=== PATIENT | female | born 1955 | race Caucasian/White ===

== ENCOUNTER 2016-05-14 11:23 | Emergency (ER) | payer OTHER ==
[2016-05-14] MEDS ORDERED: ALBUTEROL SULFATE/IPRATROPIUM 3 ML NEBU IH ONE ×2 (11:48→11:51)
[2016-05-14 11:50] LABS: Hematocrit 42.5 % (37.0-47.0); Hemoglobin 14.4 gm/dL (12.5-16.0); Mean Cell Volume 88.5 fl (78-100); Mean Corpuscular Hgb Conc 33.9 g/dl (32-36); Mean Platelet Volume 9.8 fl (6.0-9.5); Neutrophil # 7.1 K/mm3 (1.3-6.0); Neutrophil % 72.1 % (42-75.0); Platelet Count 344 K/mm3 (150-450); White Blood Count 9.8 K/mm3 (4.0-10.5)
--- NOTE | 2016-05-14 11:57 | ERNOTE ---
Dyspnea - General Presenting Symptoms: shortness of breath Time Seen by Provider: 05/14/16 11:33 Source: patient Exam Limitations: no limitations - Immun/Allergies/Home Medications Immunizations: IMMUNIZATION HX Immunizations Up to Date Yes History of Influenza Vaccine Yes Hx Pneumococcal Vaccination Yes Allergies/Adverse Reactions: Allergies Ivklsve-Xmr-Xig Reductase Inhibitor Allergy (Verified 05/14/16 11:48) liquid codeine Allergy (Uncoded 05/14/16 11:48) Home Medications: HOME MEDICATIONS Albuterol Sulfate [Proair Hfa] 2 puff IH QID PRN 05/14/16 [Last Taken Unknown] Aspirin 81 mg PO DAILY 05/14/16 [Last Taken Unknown] Bisoprolol Fumarate [Zebeta] 5 mg PO DAILY 05/14/16 [Last Taken Unknown] Budesonide/Formoterol Fumarate [Symbicort 160-4.5 Mcg Inhaler] 2 puff IH BID [Last Taken Unknown] Cetirizine HCl [Zyrtec] 10 mg PO DAILY 05/14/16 [Last Taken Unknown] Cyclobenzaprine HCl [Flexeril] 10 mg PO TID PRN 05/14/16 [Last Taken Unknown] Furosemide [Lasix] 40 mg PO DAILY 05/14/16 [Last Taken Unknown] HYDROcodone/ACETAMINOPHEN [[place] 5-325] 1 tab PO Q4H PRN 05/14/16 [Last Taken Unknown] Ipratropium/Albuterol Sulfate [Combivent Respimat Inhal [place]] 1 puff IH QID [Last Taken Unknown] Levothyroxine Sodium [Levo-T] 150 mcg PO DAILY 05/14/16 [Last Taken Unknown] Lisinopril [Zestril] 40 mg PO DAILY 05/14/16 [Last Taken Unknown] Rivaroxaban [Xarelto] 15 mg PO DAILY 05/14/16 [Last Taken Unknown] Spironolactone [Aldactone] 25 mg PO DAILY 05/14/16 [Last Taken Unknown] guaiFENesin [Mucinex] 600 mg PO DAILY 05/14/16 [Last Taken Unknown] predniSONE [Prednisone] 3 tab PO DAILY #18 tab 05/14/16 [Last Taken Unknown] - History of Present Illness Narrative: Patient has had a cough and shortness of breath for about two weeks. She saw her PCP five days ago and was started on a Zpack, her sputum has turned from brown to green with that but she has gotten more short of breath over the lass few days. She usually smokes about a pack a day but has only smoked a few cigarettes the last few days, has slight chest tightness and chest pain with prolonged coughing. She has a history of COPD, uses inhaler without a spacer, has not used nebulizers in quite a while. She also has a history of atrial fibrillation and well as ablation, pacemaker placement and remote history of LA. She has not seen a president and cmo since moving here Initiating event: Reports: upper resp illness, exposure to smoke Frequency of episodes: Reports: occassional episodes Modifying Factors - (Improves): Reports: rest Modifying Factors (Worsens): Reports: activity Associated Symptoms-Dyspnea: Reports: chest pain/discomfort, cough. Denies: fever/chills, sweating, palpitations, dizziness, lightheadedness Prior Treatment: Reports: recently seen, treated by physician Review of Systems - Review of Systems Constitutional: Present: recent illness ENT: Present: nose congestion. Absent: ear pain, sore throat Respiratory: Present: See HPI, shortness of breath, cough Cardiology: Present: See HPI, chest pain Gastrointestinal/Abdominal: Absent: nausea, vomiting, diarrhea, abdominal pain Genitourinary: Present: no symptoms reported Skin: Absent: rash Neurological: Absent: headache - Patient's Past Medical History Patient History - Medical: Anxiety, Hypothyroidism Patient History - Cardiac/Respiratory: Atrial Fibrillation, Coronary Heart Disease, COPD, CVA/Stroke, Hypertension, Myocardial Infarction, TIA Patient History - Cancer: No Hx of Cancer Patient History - Surgical Procedures: Pacemaker - Social History Smoking Status: Current every day smoker Have you smoked in the past 12 months: Yes - Immunizations Immunizations Up to Date: Yes Hx Pneumococcal Vaccination: Yes History of Influenza Vaccine: Yes Physical Exam - Physical Exam General Appearance: Present: wd/wn, alert, no apparent distress, anxious Eye Exam: Normal inspection: bilateral, PERRL: bilateral Ears, Nose, Throat: Present: normal ENT inspection Respiratory: Present: no respiratory distress - 90% on RA, decreased breath sounds, expiration (prolonged), wheezing Cardiovascular/Chest: Present: regular rate, rhythm, no murmur Gastrointestinal/Abdominal: Present: nontender, nondistended, soft Extremity Exam: Present: no edema Neurological Exam: Present: alert, oriented, normal mood/affect Skin Exam: Present: normal color, warm/dry ED Progress - Results and Orders Patient's Lab Results:: I have reviewed the patient's lab results. - Vital Signs Patient's Vital Signs:: I have reviewed the patient's vital signs. Vital Signs: Vital Signs 05/14/16 11:39 Temperature 36.4 C Pulse Rate 80 Respiratory 29 H Rate Blood Pressure 159/92 O2 Sat by Pulse 92 Oximetry - EKG EKG: atrial flutter, other - ventricular pacing EKG read: Interp. by me - X-Ray X-Ray #1 X-Ray: chest - chronic changes, no acute Interpretation: Reviewed by me - Progress/Reassessment Chief Complaint: Dyspnea Progress Note-Subjective: 05/14/16 12:17 feeling better after duoneb, improved air movement, still wheezing 05/14/16 13:28 discussed results and plan, patient instructed to use nebulizer (has 3 boxes of medications) patient is thinking about quitting smoking, briefly discussed options, will follow up with her PCP Departure Clinical Impression: COPD exacerbation - Departure Disposition: Home self-care Condition: Good Instructions: Chronic Obstructive Pulmonary Disease Exacerbation, [id number] Additional Instructions: call Dr Leonardo for a follow up appointment use your nebulizer at home or use your inhalers with a spacer finish your antibiotic Referrals: Aimee Leonardo DO [Primary Care Provider] - Prescriptions: predniSONE [Prednisone] 3 tab PO DAILY #18 tab
[2016-05-14 12:10] LABS: ALT 15 U/L (19-67); AST 22 U/L (0-48); Albumin * 3.2 gm/dl (3.4-5.0); Alkaline Phosphatase * 117 U/L (50-170); Anion Gap 12.8 mmol/L (6.8-13.8); BNP * 1619 pg/mL (5-205); Bilirubin, Total 0.6 mg/dL (0.0-1.1); Blood Urea Nitrogen 9 mg/dL (3-23); Ca. Corrected For Albumin 9.8 mg/dL (8.4-10.2); Calcium * 9.5 mg/dL (7.9-10.9); Carbon Dioxide 32.6 mmol/L (24-32.6); Chloride 90 mmol/L (97-106); Glucose * 131 mg/dL (70-110); Potassium 3.4 mmol/L (3.4-4.6); Sodium 132 mmol/L (132-142); Troponin I Less than 0.017 ng/ml (0.00-0.10)
[2016-05-14] MEDS ORDERED: predniSONE 20 MG TABLET PO ONE (12:24)
[2016-05-14] MEDS ORDERED: predniSONE 20 MG TABLET ONE (12:25)
[2016-05-14 13:35] VITALS: BP 154/81
== END 2016-05-14 13:36 | disposition home or self-care (01) ==
LOC: ER 11:23
DX: J44.1 Chronic obstructive pulmonary disease with (acute) exacerbation (principal); F17.210 Nicotine dependence, cigarettes, uncomplicated; Z95.0 Presence of cardiac pacemaker; I10 Essential (primary) hypertension; I25.10 Atherosclerotic heart disease of native coronary artery without angina pectoris; E03.9 Hypothyroidism, unspecified; I25.2 Old myocardial infarction

== ENCOUNTER 2016-08-13 17:16 | Observation (INO) | payer OTHER ==
[2016-08-13] MEDS ORDERED: NORMAL SALINE 1,000 ML IV ONE (17:46)
[2016-08-13 17:59] LABS: Hematocrit 40.9 % (37.0-47.0); Hemoglobin 14.6 gm/dL (12.5-16.0); Mean Cell Volume 86.3 fl (78-100); Mean Corpuscular Hemoglobin 30.8 pg (27-31); Mean Corpuscular Hgb Conc 35.7 g/dl (32-36); Mean Platelet Volume 9.1 fl (6.0-9.5); Neutrophil # 4.9 K/mm3 (1.3-6.0); Neutrophil % 67.8 % (42-75.0); Platelet Count 325 K/mm3 (150-450); Red Blood Count 4.74 M/mm3 (4.2-5.4); Red Cell Distribution Width 12.8 % (11.5-14.0); White Blood Count 7.2 K/mm3 (4.0-10.5)
--- NOTE | 2016-08-13 17:59 | ERNOTE ---
Medical Problem HPI - Narrative Date of Service: 08/13/16 - General Chief Complaint: General Assessment Time Seen by Provider: 08/13/16 17:39 Source: patient Exam Limitations: no limitations - Immun/Allergies/Home Medications Immunizations: IMMUNIZATION HX Immunizations Up to Date Yes History of Influenza Vaccine Yes Hx Pneumococcal Vaccination Yes Allergies/Adverse Reactions: Allergies Kddveii-Izf-Rff Reductase Inhibitor Allergy (Verified 08/13/16 17:34) liquid codeine Allergy (Uncoded 08/13/16 17:34) Home Medications: HOME MEDICATIONS Albuterol Sulfate [Proair Hfa] 2 puff IH QID PRN 05/14/16 [Last Taken Unknown] Aspirin 81 mg PO DAILY 05/14/16 [Last Taken Unknown] Bisoprolol Fumarate [Zebeta] 5 mg PO DAILY 05/14/16 [Last Taken Unknown] Budesonide/Formoterol Fumarate [Symbicort 160-4.5 Mcg Inhaler] 2 puff IH BID [Last Taken Unknown] Cetirizine HCl [Zyrtec] 10 mg PO DAILY 05/14/16 [Last Taken Unknown] Cyclobenzaprine HCl [Flexeril] 10 mg PO TID PRN 05/14/16 [Last Taken Unknown] Furosemide [Lasix] 40 mg PO DAILY 05/14/16 [Last Taken Unknown] HYDROcodone/ACETAMINOPHEN [[place] 5-325] 1 tab PO Q4H PRN 05/14/16 [Last Taken Unknown] Ipratropium/Albuterol Sulfate [Combivent Respimat Inhal [place]] 1 puff IH QID [Last Taken Unknown] Levothyroxine Sodium [Levo-T] 150 mcg PO DAILY 05/14/16 [Last Taken Unknown] Lisinopril [Zestril] 40 mg PO DAILY 05/14/16 [Last Taken Unknown] Rivaroxaban [Xarelto] 15 mg PO DAILY 05/14/16 [Last Taken Unknown] Spironolactone [Aldactone] 25 mg PO DAILY 05/14/16 [Last Taken Unknown] guaiFENesin [Mucinex] 600 mg PO DAILY 05/14/16 [Last Taken Unknown] - History of Present History Narrative: Pt. comes in with c/o low sodium as her physician's office called her this afternoon after she had an appointment for routine labs this morning. Pt. states that she has COPD, a pace maker, chronic afib , CHF, and chronic renal disease. Pt. denies any prehospital treatment but had her thyroid treated with radioactive Iodine in the past and is on TSH for replacement. Review of Systems - Review of Systems Constitutional: Present: no symptoms reported. Absent: recent illness, fever, chills, weakness, fatigue, malaise EYE: Present: no symptoms reported ENT: Present: no symptoms reported Respiratory: Present: no symptoms reported, cough - chronic for pt.. Absent: shortness of breath, wheezing Cardiology: Present: no symptoms reported. Absent: chest pain, palpitations, edema Gastrointestinal/Abdominal: Present: no symptoms reported. Absent: nausea, vomiting, diarrhea Genitourinary: Present: no symptoms reported. Absent: frequency, pain, decreased urinary output Musculoskeletal: Present: no symptoms reported. Absent: back pain, joint pain Skin: Present: no symptoms reported Neurological: Present: no symptoms reported. Absent: headache, dizziness/light- headedness, numbness, tingling All Other Systems: All systems neg except as marked - Patient's Past Medical History Patient History - Medical: Anxiety, Hypothyroidism Patient History - Cardiac/Respiratory: Atrial Fibrillation, Coronary Heart Disease, COPD, CVA/Stroke, Hypertension, Myocardial Infarction, TIA Patient History - Cancer: No Hx of Cancer Patient History - Surgical Procedures: Pacemaker - Social History Living Situations: home - Immunizations Immunizations Up to Date: Yes Hx Pneumococcal Vaccination: Yes History of Influenza Vaccine: Yes Physical Exam - Physical Exam General Appearance: Present: wd/wn, alert, no apparent distress Eye Exam: Normal inspection: bilateral, PERRL: bilateral, EOMI: bilateral Ears, Nose, Throat: Present: normal ENT inspection, normal pharynx Neck: Present: normal inspection, nontender. Absent: lymphadenopathy (R), lymphadenopathy (L) Respiratory: Present: no respiratory distress, no accessory muscle use, chest nontender, wheezing - RML RUL exp. Absent: rhonchi Cardiovascular/Chest: Present: regular rate, rhythm, no murmur, normal peripheral pulses Gastrointestinal/Abdominal: Present: normal bowel sounds, nontender, nondistended, soft, no organomegaly Back Exam: Present: normal inspection, normal range of motion, no CVA tenderness , no vertebral tenderness Extremity Exam: Present: normal inspection, non-tender, normal range of motion, no edema Neurological Exam: Present: alert, oriented, normal mood/affect, no motor/ sensory deficits Skin Exam: Present: normal color, warm/dry. Absent: pallor, skin rash ED Progress - Date and Time Seen: Date and Time: 08/13/16 22:48 Discussed case with Martina and we will admit as pt. Sodiium is still less than 125 and pt. needs to be changes from K sparing diuretic to loop and fluid restriction and monitored for possible seizure activity and resp failure due to hyponatremia. - Results and Orders Patient's Lab Results:: I have reviewed the patient's lab results. - Vital Signs Patient's Vital Signs:: I have reviewed the patient's vital signs. Vital Signs: Vital Signs 08/13/16 17:21 Temperature 36.2 C L Pulse Rate 80 Respiratory 12 Rate Blood Pressure 136/90 O2 Sat by Pulse 97 Oximetry - Progress/Reassessment Chief Complaint: General Assessment Departure - Departure Clinical Impression: Hyponatremia Disposition: Home self-care Condition: Serious
[2016-08-13 18:26] LABS: Troponin I Less than 0.017 ng/ml (0.00-0.10)
[2016-08-13 18:29] LABS: ALT 15 U/L (19-67); AST 18 U/L (0-48); Alkaline Phosphatase * 127 U/L (50-170); Anion Gap 14.3 mmol/L (6.8-13.8); BNP * 650 pg/mL (5-205); BUN/Creatinine Ratio 6.4 (9.0-21.6); Bilirubin, Total 0.6 mg/dL (0.0-1.1); Blood Urea Nitrogen 9 mg/dL (3-23); Ca. Corrected For Albumin 8.9 mg/dL (8.4-10.2); Calcium * 9.2 mg/dL (7.9-10.9); Carbon Dioxide 27.5 mmol/L (24-32.6); Chloride 85 mmol/L (97-106); Glucose * 109 mg/dL (70-110); Magnesium 1.6 mg/dL (1.2-2.8); Phosphorus 3.8 mg/dL (2.2-4.2); Potassium 4.8 mmol/L (3.4-4.6); Sodium 122 mmol/L (132-142); TSH * 1.945 uIU/mL (0.358-3.74); Total Protein 7.3 gm/dL (6.2-8.2)
[2016-08-13 19:58] LABS: Urine Bilirubin Negative (NEGATIVE); Urine Blood Negative /ul (NEGATIVE); Urine Ketone Negative (NEGATIVE); Urine Nitrite Negative (NEGATIVE); Urine Protein Negative (NEGATIVE); Urine Specific Gravity <=1.005 SP.GR. (1.005-1.010); Urine Urobilinogen Normal (NORMAL)
[2016-08-13 20:16] LABS: Urine Appearance Clear; Urine Bacteria None Seen; Urine Color Yellow; Urine RBC None Seen /hpf (0-5); Urine WBC TRACE /hpf (0-5)
[2016-08-13 21:49] LABS: Albumin * 3.8 gm/dl (3.4-5.0); Anion Gap 13.4 mmol/L (6.8-13.8); BUN/Creatinine Ratio 7.1 (9.0-21.6); Bilirubin, Total 0.6 mg/dL (0.0-1.1); Ca. Corrected For Albumin 8.6 mg/dL (8.4-10.2); Calcium * 8.8 mg/dL (7.9-10.9); Carbon Dioxide 24.7 mmol/L (24-32.6); Potassium 4.1 mmol/L (3.4-4.6); Total Protein 6.9 gm/dL (6.2-8.2)
[2016-08-13] MEDS ORDERED: NICOTINE 21 MG PATC TD SCH (23:00)
[2016-08-13] MEDS ORDERED: NORMAL SALINE 1,000 ML IV PRN (23:29)
[2016-08-13] MEDS ORDERED: HYDROcodone/ACETAMINOPHEN 1 EACH TABLET PO PRN (23:55)
[2016-08-13] MEDS ORDERED: CYCLOBENZAPRINE HCL 10 MG TABLET PO PRN (23:55)
[2016-08-13] MEDS ORDERED: ALBUTEROL SULFATE 200 PUFF INHALER IH PRN (23:55)
--- NOTE | 2016-08-13 23:55 | HP ---
Chief Complaint - Chief Complaint Date of Service: 08/13/16 Time of Service: 23:43 Chief Complaint: hyponatremia History of Present Illness: Pt is a 60 year old female pt of Dr. Fontana who was seen today for routine check up who was later called to come into the ER for a laboratory findings of Na+ 120. PMH is significant for: [place], anxiety, hypothyroidism, afib, CAD, CVA, HTN, TIA, and CHF. Upon presentation to ER Na+ level was 121, she received a total of 1L NS in ER, 4 hour NA+ level post was 123. All other laboratory findings were without abnormality, she is not symptomatic. Pt is currently on Aldactone and Lasix daily at home. She will be admitted to observation overnight with a minimum one midnight stay for IVF overnight to correct her hyponatremia. - Patient's Past Medical History Patient History - Medical: Anxiety, Hypothyroidism Patient History - Cardiac/Respiratory: Atrial Fibrillation, Coronary Heart Disease, CHF, COPD, CVA/Stroke, Hypertension, Myocardial Infarction, TIA Patient History - Cancer: Cervical Patient History - Surgical Procedures: Cholecystectomy, D & C, Pacemaker, Other - cervical peel, Hernia Repair Patient History - Other: None - Family History Mother Family History - Medical: Family History - Cardiac/Respiratory: Hypertension Family History - Cancer: Lung Father Family History - Cancer: Melanoma Grandmother-Paternal Family History - Medical: Family History - Cardiac/Respiratory: Myocardial Infarction Grandmother-Maternal Family History - Medical: Family History - Cardiac/Respiratory: CVA/Stroke, Hypertension Grandfather-Paternal Family History - Medical: Family History - Cancer: Colon Grandfather-Maternal Family History - Medical: Family History - Cardiac/Respiratory: No pertinent hx Family History - Cancer: Lung - Social History Living Situations: home Psych History: Hx of Anxiety Does anyone smoke in the home?: No Smoking Status: Current every day smoker Cigarettes Packs Per Day: 1.5 - PPD Have you smoked in the past 12 months: Yes Patient requests Smoking Cessation Consult: No Initiate information on Smoking Cessation: No Alcohol Use: none Drug Use: marijuana - Immunizations Immunizations Up to Date: Yes Hx Pneumococcal Vaccination: Yes History of Influenza Vaccine: Yes Review Of Systems (GEN) - Review of Systems Generalized/Overall Review: Present: No Symptoms Reported EENTM: Present: Nose Congestion Respiratory: Present: Cough - post nasal drip Cardiac: Present: No Symptoms Reported Abdominal: Present: No Symptoms Reported Genitourinary: Present: No Symptoms Reported Musculoskeletal: Present: No Symptoms Reported Neurological: Present: No Symptoms Reported Skin: Present: No Symptoms Reported Endocrine: Present: No Symptoms Reported Immunizations: IMMUNIZATION HX Immunizations Up to Date Yes History of Influenza Vaccine Yes Hx Pneumococcal Vaccination Yes Allergies/Adverse Reactions: Allergies Allergy/AdvReac Type Severity Reaction Status Date / Time Jfvhdpz-Iyv-Hsr Reductase Allergy Verified 08/13/16 17:34 Inhibitor liquid codeine Allergy Uncoded 08/13/16 17:34 Home Medications: HOME MEDICATIONS Albuterol Sulfate [Proair Hfa] 2 puff IH QID PRN 05/14/16 [Last Taken Unknown] Aspirin 81 mg PO DAILY 05/14/16 [Last Taken Unknown] Bisoprolol Fumarate [Zebeta] 5 mg PO DAILY 05/14/16 [Last Taken Unknown] Budesonide/Formoterol Fumarate [Symbicort 160-4.5 Mcg Inhaler] 2 puff IH BID [Last Taken Unknown] Cetirizine HCl [Zyrtec] 10 mg PO DAILY 05/14/16 [Last Taken Unknown] Cyclobenzaprine HCl [Flexeril] 10 mg PO TID PRN 05/14/16 [Last Taken Unknown] Furosemide [Lasix] 40 mg PO DAILY 05/14/16 [Last Taken Unknown] HYDROcodone/ACETAMINOPHEN [[place] 5-325] 1 tab PO Q4H PRN 05/14/16 [Last Taken Unknown] Ipratropium/Albuterol Sulfate [Combivent Respimat Inhal [place]] 1 puff IH QID [Last Taken Unknown] Levothyroxine Sodium [Levo-T] 175 mcg PO DAILY 05/14/16 [Last Taken Unknown] Lisinopril [Zestril] 40 mg PO DAILY 05/14/16 [Last Taken Unknown] Rivaroxaban [Xarelto] 15 mg PO DAILY 05/14/16 [Last Taken Unknown] Spironolactone [Aldactone] 25 mg PO DAILY 05/14/16 [Last Taken Unknown] guaiFENesin [Mucinex] 600 mg PO DAILY 05/14/16 [Last Taken Unknown] Exam - Exam Vital Signs: Vital Signs - Last Taken Temp 35.9 C L 08/13/16 23:04 Pulse 80 08/13/16 23:04 Resp 18 08/13/16 23:04 BP 147/90 08/13/16 23:04 Pulse Ox 100 RA 08/13/16 23:04 Constitutional: Present: Alert, Oriented x3, Cooperative, No distress ENT Exam: Present: normal ENT inspection, nasal congestion, nasal drainage Eye Exam: bilateral eye: normal inspection, PERRL Back Exam: Present: normal inspection Respiratory: Present: chest non-tender, no respiratory distress, no accessory muscle use, decreased breath sounds, wheezing Cardiovascular/Chest: Present: normal peripheral pulses, regular rate, rhythm, no chest tenderness, no edema, no gallop, no JVD, no murmur Peripheral Pulses: dorsalis-pedis (R): 2+, dorsalis-pedis (L): 2+, radial (R): 2 +, radial (L): 2+ Abdomen: Present: Normal bowel sounds, soft, nontender, nondistended Extremity: Present: normal range of motion, non-tender, normal inspection, no pedal edema, no calf tenderness, normal capillary refill Skin Exam: Present: normal color, warm/dry, no cyanosis Neurologic: Present: no motor/sensory deficits, alert, normal mood/affect, oriented x 3 Appearance: Present: appropriate appearance, appropriate insight, neat, no memory impairment Eye contact: Present: cooperative, good eye contact, normal speech Thoughts: Present: normal thought pattern, no apparent hallucination Diagnostic Studies: Laboratory Results Laboratory Tests 08/13/16 08/13/16 08/13/16 17:50 17:50 19:45 WBC 7.2 Hgb 14.6 Hct 40.9 Plt Count 325 Sodium 122 L Potassium 4.8 H Chloride 85 L Carbon Dioxide 27.5 Anion Gap 14.3 H BUN 9 Creatinine 1.41 H Phosphorus 3.8 Magnesium 1.6 AST 18 ALT 15 L Alkaline Phosphatase 127 Troponin I Less than 0.017 B-Natriuretic Peptide 650 H TSH 1.945 Ur Leukocyte Esterase 75 H Urine WBC Trace H Assessment/Plan - Assessment/Plan (1) Hyponatremia Assessment: Outpt laboratory level of 120, upon admission Na+ 123. Will admit and hydrate with NS overnight, pt remains asymptomatic, usually runs in low 130's. Repeat labs in am. -CMP in am -Hold aldactone and lasix -Sz precautions -Telemetry Problem: Acute (2) A-fib Assessment: Stable, continue xarelto as prescribed at home. Plan: -Xarelto 15mg daily Problem: Chronic (3) Hypothyroidism Assessment: Stable, TSH 1.9 on admission. Continue home medications. Plan: -Synthroid 175mcg PO daily Problem: Chronic (4) HTN (hypertension) Assessment: Stable, chronic condition. Continue home medications as prescribed. Plan: -Lisinopril 40mg PO daily -Zebeta 5mg PO daily Problem: Chronic (5) COPD (chronic obstructive pulmonary disease) Assessment: Stable, continue home medications are prescribed. Plan: -Symbicort -Proair -Combivent Problem: Acute
[2016-08-14] MEDS: FLUTICASONE/SALMETEROL 14 PUFF DISK.W.DEV IH SCH ×2 (00:33→07:32)
[2016-08-14] MEDS: ALBUTEROL SULFATE/IPRATROPIUM 3 ML NEBU IH SCH ×3 (00:52→10:19)
[2016-08-14 06:16] LABS: Albumin * 3.3 gm/dl (3.4-5.0); Anion Gap 12.8 mmol/L (6.8-13.8); BUN/Creatinine Ratio 8.1 (9.0-21.6); Bilirubin, Total 0.5 mg/dL (0.0-1.1); Ca. Corrected For Albumin 8.8 mg/dL (8.4-10.2); Calcium * 8.6 mg/dL (7.9-10.9); Carbon Dioxide 25.9 mmol/L (24-32.6); Potassium 3.7 mmol/L (3.4-4.6); Total Protein 6.1 gm/dL (6.2-8.2)
[2016-08-14] MEDS ORDERED: ALBUTEROL SULFATE 2.5 MG/3 ML VIAL.NEB IH PRN (06:45)
[2016-08-14 06:55] VITALS: BP 128/90
[2016-08-14] MEDS ORDERED: LEVOTHYROXINE SODIUM 175 MCG TABLET PO SCH (07:00)
[2016-08-14] MEDS ORDERED: RIVAROXABAN 15 MG TABLET PO SCH (09:00)
[2016-08-14] MEDS ORDERED: ASPIRIN 81 MG TAB.CHEW PO SCH (09:00)
[2016-08-14] MEDS ORDERED: LORATADINE 10 MG TABLET PO SCH (09:00)
[2016-08-14] MEDS ORDERED: BISOPROLOL FUMARATE 5 MG TABLET PO SCH ×2 (09:00)
[2016-08-14] MEDS ORDERED: LISINOPRIL 40 MG TABLET PO SCH (09:00)
--- NOTE | 2016-08-14 09:38 | DS ---
(1) Hyponatremia Diagnosis(s): Acute on ChronicO Problem: Acute Description of Stay: ADMISSION DATE: 08.13.2016 DISCHARGE DATE: 08.14.2016 ADMISSION HPI BY BENNIE COBURN NP: Pt is a 60 year old female pt of Dr. Fontana who was seen today for routine check up who was later called to come into the ER for a laboratory findings of Na+ 120. PMH is significant for: [place], anxiety, hypothyroidism, afib, CAD, CVA, HTN, TIA, and CHF. Upon presentation to ER Na+ level was 121, she received a total of 1L NS in ER, 4 hour NA+ level post was 123. All other laboratory findings were without abnormality, she is not symptomatic. Pt is currently on Aldactone and Lasix daily at home. She will be admitted to observation overnight with a minimum one midnight stay for IVF overnight to correct her hyponatremia. HOSPITAL COURSE: The patient presented to clinic for routine follow-up visit on 08/13/2016. She had routine blood work that was drawn at that visit and a short time after her appointment, her blood work results revealed a sodium level of 120. The patient does have chronic hyponatremia with a baseline sodium level around 130. The patient admits to having a poor appetite and nausea which has been present for quite some time now so it is most likely that the acute worsening in her sodium level was secondary to poor PO intake. Patient was given IV fluid hydration during her overnight observation admission and on recheck, her sodium level was improved and close to baseline. The patient was discharged home in stable condition and instructed to follow-up with Dr. Leonardo within 1-2 weeks. She was also instructed to have blood work completed on Saturday, 2016. The patient had a UA completed in the emergency department prior to admission. However, there were no urine studies ordered for further evaluation of the hyponatremia. The patient did NOT have any urinary symptoms so a urine culture should have never been completed but it was in the preliminary results are growing gram-negative bacilli. Given the patients lack of urinary symptoms, this would be considered asymptomatic bacteriuria and there is NO antibiotic treatment necessary/indicated. FOLLOW-UP APPOINTMENTS: Check BMP on 08.20.2016 and have results sent to Dr. Fontana office for review PCP, Dr. Leonardo, within 1-2 weeks NEW OR CHANGED MEDICATIONS: None DISCONTINUED MEDICATIONS: None Procedures Performed: none Results and Findings: Laboratory Tests 08/13/16 08/13/16 08/14/16 17:50 21:30 05:20 Sodium 122 L 123 L 128 L TSH 1.945 Discharge Disposition: Home self care Disposition: Home self-care Condition: Stable Discharge Activity: Activity as tolerated Discharge Diet: Resume usual diet Referrals: Aimee Leonardo DO [Primary Care Provider] - Problem Oriented Discharge Instructions to Patient/Family: Hyponatremia, Easy- to-Read Additional Patient Instructions (free text): Check BMP on 08/20/2016. Follow-up with PCP, Dr. Leonardo, next week on 08-21-16 @ 4:00pm. Complete Home Medications List: Complete Home Medication List: Albuterol Sulfate [Proair Hfa] 2 puff IH QID PRN 05/14/16 Aspirin 81 mg PO DAILY 05/14/16 Bisoprolol Fumarate [Zebeta] 5 mg PO DAILY 05/14/16 Budesonide/Formoterol Fumarate [Symbicort 160-4.5 Mcg Inhaler] 2 puff IH BID Cetirizine HCl [Zyrtec] 10 mg PO DAILY 05/14/16 Cyclobenzaprine HCl [Flexeril] 10 mg PO TID PRN 05/14/16 Furosemide [Lasix] 40 mg PO DAILY 05/14/16 HYDROcodone/ACETAMINOPHEN [[place] 5-325] 1 tab PO Q4H PRN 05/14/16 Ipratropium/Albuterol Sulfate [Combivent Respimat Inhal [place]] 1 puff IH QID Levothyroxine Sodium [Levo-T] 175 mcg PO DAILY 05/14/16 Lisinopril [Zestril] 40 mg PO DAILY 05/14/16 Rivaroxaban [Xarelto] 15 mg PO DAILY 05/14/16 Spironolactone [Aldactone] 25 mg PO DAILY 05/14/16 guaiFENesin [Mucinex] 600 mg PO DAILY 05/14/16 Amb Orders for Discharge: Basic Metabolic Panel Time Frame: 08/20/16, Facility: [facility], Location: Laboratory
== END 2016-08-14 11:10 | disposition home or self-care (01) ==
LOC: ER 17:16 → MS 22:22
PROVIDERS: ADMIT Nurse Practitioner Gerontology; ATTEND Internal Medicine
DX: E87.1 Hypo-osmolality and hyponatremia (principal); I12.9 Hypertensive chronic kidney disease with stage 1 through stage 4 chronic kidney disease, or unspecified chronic kidney disease; E89.0 Postprocedural hypothyroidism; J44.9 Chronic obstructive pulmonary disease, unspecified; Z72.0 Tobacco use; I25.10 Atherosclerotic heart disease of native coronary artery without angina pectoris; I50.9 Heart failure, unspecified; Z95.0 Presence of cardiac pacemaker; R82.71 Bacteriuria
CPT/HCPCS: 36415; 80053; 81001; 82330; 83735; 83789; 83880; 84100; 84443; 84484; 85025; 87077; 87086; 87186; 93005; 94640; 99284; G0378

== ENCOUNTER 2016-12-31 10:56 | Inpatient (IN) | payer OTHER ==
[2016-12-31] MEDS ORDERED: ONDANSETRON HCL/PF 2 MG/ML VIAL ONE (11:22)
[2016-12-31] MEDS ORDERED: ONDANSETRON HCL/PF 2 MG/ML VIAL IV ONE (11:23)
[2016-12-31] MEDS: NORMAL SALINE 1,000 ML IV ONE ×2 (11:27→20:49)
--- NOTE | 2016-12-31 11:33 | ERNOTE ---
Medical Problem HPI - Narrative Date of Service: 12/31/16 - General Chief Complaint: Nausea/Vomiting Time Seen by Provider: 12/31/16 11:19 Source: patient - Immun/Allergies/Home Medications Immunizations: IMMUNIZATION HX Immunizations Up to Date Yes History of Influenza Vaccine No Hx Pneumococcal Vaccination No Allergies/Adverse Reactions: Allergies [id number] Reductase Inhibitor Allergy (Verified 12/31/16 13:42) liquid codeine Allergy (Uncoded 12/31/16 13:42) Home Medications: HOME MEDICATIONS Albuterol Sulfate [Proair Hfa] 2 puff IH QID PRN 05/14/16 [Last Taken Unknown] Aspirin 81 mg PO HS 05/14/16 [Last Taken Unknown] Bisoprolol Fumarate [Zebeta] 5 mg PO DAILY 05/14/16 [Last Taken Unknown] Budesonide/Formoterol Fumarate [Symbicort 160-4.5 Mcg Inhaler] 2 puff IH BID [Last Taken Unknown] Cetirizine HCl [Zyrtec] 10 mg PO HS 05/14/16 [Last Taken Unknown] Cyclobenzaprine HCl [Flexeril] 10 mg PO TID PRN 05/14/16 [Last Taken Unknown] Furosemide [Lasix] 40 mg PO DAILY 05/14/16 [Last Taken Unknown] HYDROcodone/ACETAMINOPHEN [[place] 5-325] 1 tab PO Q4H PRN 05/14/16 [Last Taken Unknown] Ipratropium/Albuterol Sulfate [Combivent Respimat Inhal [place]] 1 puff IH QID [Last Taken Unknown] Levothyroxine Sodium [Levo-T] 175 mcg PO DAILY 05/14/16 [Last Taken Unknown] Lisinopril [Zestril] 40 mg PO DAILY 05/14/16 [Last Taken Unknown] Rivaroxaban [Xarelto] 15 mg PO HS 05/14/16 [Last Taken Unknown] Spironolactone [Aldactone] 25 mg PO DAILY 05/14/16 [Last Taken Unknown] Omeprazole 40 mg PO DAILY 12/31/16 [Last Taken Unknown] Tiotropium [place] [Spiriva] 18 mcg IH DAILY 12/31/16 [Last Taken Unknown] - History of Present History Narrative: 61-year-old female presents to the emergency room for nausea vomiting and some diarrhea since . Patient states she is not made urine since yesterday and is concerned. Patient states that she has not been able to keep down her fluids or her medications for the last 2 days. Patient states she feels like she is very dehydrated. Date (Duration): 12/31/16 Timing: getting worse Severity: moderate Modifying Factors - (Worsens): Present: eating Review of Systems - Review of Systems Constitutional: Present: See HPI, weakness, fatigue, decreased activity level EYE: Present: no symptoms reported ENT: Present: no symptoms reported Respiratory: Present: no symptoms reported Cardiology: Present: no symptoms reported Gastrointestinal/Abdominal: Present: See HPI, nausea, vomiting, diarrhea, eating less, drinking less Genitourinary: Present: See HPI, decreased urinary output Musculoskeletal: Present: no symptoms reported Skin: Present: no symptoms reported Neurological: Present: no symptoms reported Endocrine: Present: no symptoms reported Hematologic/Lymphatic: Present: no symptoms reported Psych: Present: no symptoms reported All Other Systems: All systems neg except as marked - Patient's Past Medical History Patient History - Medical: Anxiety, Hypothyroidism Patient History - Cardiac/Respiratory: Atrial Fibrillation, Coronary Heart Disease, CHF, COPD, CVA/Stroke, Hypertension, Myocardial Infarction, TIA Patient History - Cancer: Cervical Patient History - Surgical Procedures: Cholecystectomy, D & C, Pacemaker, Other , Hernia Repair Patient History - Other: None LMP (females 10-50): Menopausal - Family History Mother Family History - Medical: Family History - Cardiac/Respiratory: Hypertension Family History - Cancer: Lung Father Family History - Cancer: Melanoma Grandmother-Paternal Family History - Medical: Family History - Cardiac/Respiratory: Myocardial Infarction Grandmother-Maternal Family History - Medical: Family History - Cardiac/Respiratory: CVA/Stroke, Hypertension Grandfather-Paternal Family History - Medical: Family History - Cancer: Colon Grandfather-Maternal Family History - Medical: Family History - Cardiac/Respiratory: No pertinent hx Family History - Cancer: Lung - Social History Living Situations: home Abuse History: No History of abuse Psych History: Hx of Anxiety, Current tx/ever been on anti-depressants or anti- anxiety meds Does anyone smoke in the home?: No Smoking Status: Current every day smoker Have you smoked in the past 12 months: Yes Alcohol Use: none Drug Use: marijuana - Immunizations Immunizations Up to Date: Yes Hx Pneumococcal Vaccination: No History of Influenza Vaccine: No Physical Exam - Physical Exam General Appearance: Present: wd/wn, alert, no apparent distress, anxious Head Exam: Present: normal inspection, no evidence of injury Eye Exam: Normal inspection: bilateral, PERRL: bilateral, EOMI: bilateral Ears, Nose, Throat: Present: normal ENT inspection, normal pharynx Neck: Present: normal inspection, nontender, full range of motion Respiratory: Present: no respiratory distress, normal breath sounds, no accessory muscle use, chest nontender, lungs clear Cardiovascular/Chest: Present: regular rate, rhythm, no murmur, normal peripheral pulses Gastrointestinal/Abdominal: Present: normal bowel sounds, soft, tenderness Back Exam: Present: normal inspection, normal range of motion, no CVA tenderness , no vertebral tenderness Extremity Exam: Present: normal inspection, normal range of motion, no edema Neurological Exam: Present: alert, oriented, normal mood/affect, no motor/ sensory deficits Skin Exam: Present: normal color, warm/dry Lymphatic Exam: Present: no adenopathy ED Progress - Results and Orders Patient's Lab Results:: I have reviewed the patient's lab results. Results and Orders: 117 Na - Vital Signs Patient's Vital Signs:: I have reviewed the patient's vital signs. Vital Signs: Vital Signs 12/31/16 11:01 Temperature 36.6 C Pulse Rate 80 Respiratory 16 Rate Blood Pressure 157/90 O2 Sat by Pulse 98 Oximetry - Progress/Reassessment Chief Complaint: Nausea/Vomiting Progress:: Improved Plan - Plan Plan: After speaking with the on-call physician Dr. Madden he agrees the patient needs to be admitted to have her sodium corrected while she is in the hospital. Patient agrees to admission Departure Clinical Impression: Hyponatremia - Departure Disposition: [facility] Condition: Stable
[2016-12-31 11:36] LABS: Hematocrit 42.8 % (37.0-47.0); Hemoglobin 15.4 gm/dL (12.5-16.0); Mean Cell Volume 85.8 fl (78-100); Mean Corpuscular Hemoglobin 30.9 pg (27-31); Mean Platelet Volume 8.8 fl (6.0-9.5); Neutrophil % 76.7 % (42-75.0); Platelet Count 342 K/mm3 (150-450); Red Blood Count 4.99 M/mm3 (4.2-5.4); Red Cell Distribution Width 13.2 % (11.5-14.0); White Blood Count 11.7 K/mm3 (4.0-10.5)
[2016-12-31 11:47] LABS: Prothrombin Time (Patient) 10.7 Seconds (9.4-11.4)
[2016-12-31 11:48] LABS: INR 1.03 INR (0.90-1.10)
[2016-12-31 11:57] LABS: Albumin * 4.4 gm/dl (3.4-5.0); Anion Gap 15.9 mmol/L (6.8-13.8); BUN/Creatinine Ratio 10.8 (9.0-21.6); Bilirubin, Total 1.1 mg/dL (0.0-1.1); Ca. Corrected For Albumin 8.8 mg/dL (8.4-10.2); Calcium * 9.4 mg/dL (7.9-10.9); Carbon Dioxide 24.5 mmol/L (24-32.6); Potassium 4.4 mmol/L (3.4-4.6); Total Protein 7.8 gm/dL (6.2-8.2)
[2016-12-31 12:13] LABS: Urine Bilirubin 1 mg/dl (NEGATIVE); Urine Blood Negative /ul (NEGATIVE); Urine Ketone 15 mg/dL (NEGATIVE); Urine Nitrite Negative (NEGATIVE); Urine Protein Negative (NEGATIVE); Urine Urobilinogen Normal (NORMAL); Urine pH 5.5 pH (5.0-7.0)
[2016-12-31 12:26] LABS: Cocaine Ur Negative (NEGATIVE); Urine Barbiturate Negative (NEGATIVE); Urine Benzodiazepines Negative (NEGATIVE); Urine PCP Negative (NEGATIVE)
[2016-12-31 12:27] LABS: Urine Appearance Slightly Cloudy; Urine Bacteria 1+; Urine Color Yellow; Urine RBC None Seen /hpf (0-5); Urine WBC 0-5 /hpf (0-5)
[2016-12-31 12:28] LABS: Urine Opiates Positive (NEGATIVE)
[2016-12-31 12:29] LABS: Urine THC Positive (NEGATIVE)
[2016-12-31] MEDS ORDERED: FLU VACC QS2017-18(6MOS UP)/PF 60 MCG/0.5 ML SYRINGE IM ONE (13:36)
[2016-12-31 14:38] LABS: BUN/Creatinine Ratio 10.1 (9.0-21.6); Carbon Dioxide 27.5 mmol/L (24-32.6); Estimated Creat Clear 33.2; Potassium 4.5 mmol/L (3.4-4.6)
[2016-12-31 21:19] LABS: BUN/Creatinine Ratio 9.9 (9.0-21.6); Calcium * 8.8 mg/dL (7.9-10.9); Carbon Dioxide 28.2 mmol/L (24-32.6); Estimated Creat Clear 38.1; Potassium 4.2 mmol/L (3.4-4.6)
[2016-12-31] MEDS ORDERED: CYCLOBENZAPRINE HCL 10 MG TABLET PO PRN (22:25)
[2016-12-31] MEDS ORDERED: HYDROcodone/ACETAMINOPHEN 1 EACH TABLET PO PRN (22:25)
[2016-12-31] MEDS ORDERED: ALBUTEROL SULFATE 200 PUFF INHALER IH PRN (22:25)
--- NOTE | 2016-12-31 23:56 | HP ---
Chief Complaint - Chief Complaint Date of Service: 12/31/16 Time of Service: 16:30 Chief Complaint: Diarrhea, nausea, vomiting, weakness History of Present Illness: Eryn is a 61 yo female with diarrhea that started 3 days ago followed by nausea and vomiting. This was also combined with poor oral intake. She reports eating out and thinks she may had food poisoning, although uncertain as to a specific meal. She denies sick contacts. Denies bloody stool or emesis. She reports worsening fatigue and weakness and presented to the ER today for evaluation. ER found her to have a sodium of 117. - Patient's Past Medical History Patient History - Medical: Anxiety, Hypothyroidism Patient History - Cardiac/Respiratory: Atrial Fibrillation, Coronary Heart Disease, CHF, COPD, CVA/Stroke, Hypertension, Myocardial Infarction, TIA Patient History - Cancer: Cervical Patient History - Surgical Procedures: Cholecystectomy, D & C, Pacemaker, Other , Hernia Repair Patient History - Other: None LMP (females 10-50): Menopausal - Family History Mother Family History - Medical: Family History - Cardiac/Respiratory: Hypertension Family History - Cancer: Lung Father Family History - Cancer: Melanoma Grandmother-Paternal Family History - Medical: Family History - Cardiac/Respiratory: Myocardial Infarction Grandmother-Maternal Family History - Medical: Family History - Cardiac/Respiratory: CVA/Stroke, Hypertension Grandfather-Paternal Family History - Medical: Family History - Cancer: Colon Grandfather-Maternal Family History - Medical: Family History - Cardiac/Respiratory: No pertinent hx Family History - Cancer: Lung - Social History Living Situations: home Abuse History: No History of abuse Psych History: Hx of Anxiety, Current tx/ever been on anti-depressants or anti- anxiety meds Does anyone smoke in the home?: No Smoking Status: Current every day smoker Have you smoked in the past 12 months: Yes Do you dip or chew tobacco: No Patient requests Smoking Cessation Consult: No Initiate information on Smoking Cessation: Yes Alcohol Use: none Drug Use: marijuana - Immunizations Immunizations Up to Date: Yes Hx Pneumococcal Vaccination: No History of Influenza Vaccine: No Review Of Systems (GEN) - Review of Systems Generalized/Overall Review: Present: Weakness. Absent: Chills, Fever EENTM: Absent: No Symptoms Reported Respiratory: Absent: No Symptoms Reported Cardiac: Absent: No Symptoms Reported Abdominal: Present: Vomiting, Diarrhea. Absent: Nausea, Hematemesis, Abdominal Pain, Constipation, Melena, Bright blood from rectum Genitourinary: Present: No Symptoms Reported, Retention Musculoskeletal: Present: No Symptoms Reported Neurological: Present: Weakness Skin: Present: No Symptoms Reported Immunizations: IMMUNIZATION HX Immunizations Up to Date Yes History of Influenza Vaccine No Hx Pneumococcal Vaccination No Allergies/Adverse Reactions: Allergies Allergy/AdvReac Type Severity Reaction Status Date / Time [id number]-[id number] Reductase Allergy Verified 12/31/16 13:42 Inhibitor liquid codeine Allergy Uncoded 12/31/16 13:42 Home Medications: HOME MEDICATIONS Albuterol Sulfate [Proair Hfa] 2 puff IH QID PRN 05/14/16 [Last Taken Unknown] Aspirin 81 mg PO HS 05/14/16 [Last Taken Unknown] Bisoprolol Fumarate [Zebeta] 5 mg PO DAILY 05/14/16 [Last Taken Unknown] Budesonide/Formoterol Fumarate [Symbicort 160-4.5 Mcg Inhaler] 2 puff IH BID [Last Taken Unknown] Cetirizine HCl [Zyrtec] 10 mg PO HS 05/14/16 [Last Taken Unknown] Cyclobenzaprine HCl [Flexeril] 10 mg PO TID PRN 05/14/16 [Last Taken Unknown] Furosemide [Lasix] 40 mg PO DAILY 05/14/16 [Last Taken Unknown] HYDROcodone/ACETAMINOPHEN [[place] 5-325] 1 tab PO Q4H PRN 05/14/16 [Last Taken Unknown] Ipratropium/Albuterol Sulfate [Combivent Respimat Inhal [place]] 1 puff IH QID [Last Taken Unknown] Levothyroxine Sodium [Levo-T] 175 mcg PO DAILY 05/14/16 [Last Taken Unknown] Lisinopril [Zestril] 40 mg PO DAILY 05/14/16 [Last Taken Unknown] Rivaroxaban [Xarelto] 15 mg PO HS 05/14/16 [Last Taken Unknown] Spironolactone [Aldactone] 25 mg PO DAILY 05/14/16 [Last Taken Unknown] Omeprazole 40 mg PO DAILY 12/31/16 [Last Taken Unknown] Tiotropium [place] [Spiriva] 18 mcg IH DAILY 12/31/16 [Last Taken Unknown] Exam - Exam Vital Signs: Vital Signs - Last Taken Temp 36.8 C 12/31/16 23:43 Pulse 81 12/31/16 23:43 Resp 20 12/31/16 23:43 BP 158/89 12/31/16 23:43 Pulse Ox 97 12/31/16 23:43 Constitutional: Present: Alert, Oriented x3, Cooperative ENT Exam: Absent: hearing grossly normal Respiratory: Present: lungs clear, normal breath sounds Cardiovascular/Chest: Present: no murmur, irregularly irregular Abdomen: Present: Normal bowel sounds, soft, nontender, nondistended Extremity: Absent: normal inspection, lower extremity edema Skin Exam: Present: warm/dry, no cyanosis. Absent: normal color Lymphatic: Absent: no adenopathy Appearance: Present: appropriate appearance, appropriate insight Eye contact: Present: cooperative, good eye contact, normal speech Thoughts: Present: normal thought pattern. Absent: no apparent hallucination Diagnostic Studies: Abnormal Lab Results 12/31/16 12/31/16 Range/Units 14:20 21:00 Sodium 119 L 125 L (132-142) mmol/L Plasma Sodium 119 L* 125 L (130-142) mmol/L Chloride 83 L 89 L (97-106) mmol/L Est GFR (Non-Af Amer) 41 L 48 L (60-130) mL/min Laboratory Results WBC 11.7 K/mm3 (4.0-10.5) H 12/31/16 11:30 RBC 4.99 M/mm3 (4.2-5.4) 12/31/16 11:30 Hgb 15.4 gm/dL (12.5-16.0) 12/31/16 11:30 Hct 42.8 % (37.0-47.0) 12/31/16 11:30 MCV 85.8 fl (78-100) 12/31/16 11:30 MCH 30.9 pg (27-31) 12/31/16 11:30 MCHC 36.0 g/dl (32-36) 12/31/16 11:30 RDW 13.2 % (11.5-14.0) 12/31/16 11:30 Plt Count 342 K/mm3 (150-450) 12/31/16 11:30 MPV 8.8 fl (6.0-9.5) 12/31/16 11:30 Immature Gran % (Auto) 0.30 % (0.001-0.429) 12/31/16 11:30 Immature Gran # (Auto) 0.03 K/mm3 (0.000-0.0310) 12/31/16 11:30 Neutrophils % 76.7 % (42-75.0) H 12/31/16 11:30 Lymphocytes % 14.2 % (20-51) L 12/31/16 11:30 Monocytes % 8.1 % (0.0-9) 12/31/16 11:30 Eosinophils % 0.3 % (0.0-3.0) 12/31/16 11:30 Basophils % 0.4 % (0.0-1.0) 12/31/16 11:30 Nucleated RBC % 0.0 k/mm3 (0-1) 12/31/16 11:30 Neutrophils # 9.0 K/mm3 (1.3-6.0) H 12/31/16 11:30 Lymphocytes # 1.7 k/mm3 (1.5-3.5) 12/31/16 11:30 Monocytes # 1.0 k/mm3 (0.0-1.0) 12/31/16 11:30 Eosinophils # 0.0 k/mm3 (0.0-0.7) 12/31/16 11:30 Absolute Basophils 0.1 k/mm3 (0.0-0.1) 12/31/16 11:30 PT 10.7 Seconds (9.4-11.4) 12/31/16 11:30 INR (Anticoag Therapy) 1.03 INR (0.90-1.10) 12/31/16 11:30 Sodium 125 mmol/L (132-142) L 12/31/16 21:00 Plasma Sodium 125 mmol/L (130-142) L 12/31/16 21:00 Potassium 4.2 mmol/L (3.4-4.6) 12/31/16 21:00 Chloride 89 mmol/L (97-106) L 12/31/16 21:00 Carbon Dioxide 28.2 mmol/L (24-32.6) 12/31/16 21:00 Anion Gap 12.0 mmol/L (6.8-13.8) 12/31/16 21:00 BUN 12 mg/dL (3-23) 12/31/16 21:00 Creatinine 1.21 mg/dL (0.4-1.4) 12/31/16 21:00 Est GFR (Non-Af Amer) 48 mL/min (60-130) L 12/31/16 21:00 BUN/Creatinine Ratio 9.9 (9.0-21.6) 12/31/16 21:00 Random Glucose 94 mg/dL (70-110) 12/31/16 21:00 Lactic Acid, Venous 1.7 mmol/L (0.4-1.9) 12/31/16 11:30 Calcium 8.8 mg/dL (7.9-10.9) 12/31/16 21:00 Calcium Adj for Albumin 8.8 mg/dL (8.4-10.2) 12/31/16 11:30 Total Bilirubin 1.1 mg/dL (0.0-1.1) 12/31/16 11:30 AST 22 U/L (0-48) 12/31/16 11:30 ALT 12 U/L (19-67) L 12/31/16 11:30 Alkaline Phosphatase 119 U/L (50-170) 12/31/16 11:30 B-Natriuretic Peptide 957 pg/mL (5-205) H 12/31/16 11:30 Total Protein 7.8 gm/dL (6.2-8.2) 12/31/16 11:30 Albumin 4.4 gm/dl (3.4-5.0) 12/31/16 11:30 Urine Color Yellow 12/31/16 12:00 Urine Appearance Slightly cloudy 12/31/16 12:00 Urine pH 5.5 pH (5.0-7.0) 12/31/16 12:00 Ur Specific [place] 1.020 SP.GR. (1.005-1.010) 12/31/16 12:00 Urine Protein Negative mg/dL (NEGATIVE) 12/31/16 12:00 Urine Glucose (UA) Negative mg/dL (NEGATIVE) 12/31/16 12:00 Urine Ketones 15 mg/dL (NEGATIVE) 12/31/16 12:00 Urine Blood Negative /ul (NEGATIVE) 12/31/16 12:00 Urine Nitrate Negative (NEGATIVE) 12/31/16 12:00 Urine Bilirubin 1 mg/dl (NEGATIVE) H 12/31/16 12:00 Urine Ictotest Negative (NEGATIVE) 12/31/16 12:00 Urine Urobilinogen Normal EU/dl (NORMAL) 12/31/16 12:00 Ur Leukocyte Esterase Negative /ul (NEGATIVE) 12/31/16 12:00 Urine RBC None seen /hpf (0-5) 12/31/16 12:00 Urine WBC 0-5 /hpf (0-5) 12/31/16 12:00 Ur Epithelial Cells 5-10 /hpf (0-5) H 12/31/16 12:00 Urine Bacteria 1+ (NONE) H 12/31/16 12:00 Urine Culture Comments No culture indicated 12/31/16 12:00 Urine Opiates Screen Positive (NEGATIVE) H 12/31/16 12:00 Barbiturate Screen Negative (NEGATIVE) 12/31/16 12:00 Ur Phencyclidine Scrn Negative (NEGATIVE) 12/31/16 12:00 Urine Amphetamine Negative (NEGATIVE) 12/31/16 12:00 U Benzodiazepines Scrn Negative (NEGATIVE) 12/31/16 12:00 Urine Cocaine Screen Negative (NEGATIVE) 12/31/16 12:00 Urine Marijuana (THC) Positive (NEGATIVE) H 12/31/16 12:00 Assessment/Plan - Assessment/Plan (1) Hyponatremia Assessment: Eryn is a 61 yo female with hypovolumic hyponatremia secondary to suspected gastroenteritis with diarrhea, vomiting, and poor oral intake. Sodium in the ER of 117 with weakness, fatigue. Will treat with NS at 70ml/hr and monitor BMP every few hours initially. Will adjust correction as needed with a goal to raise sodium slowly. Due to severely low sodium and need to slowly raise sodium expect >2 midnights for treatment and monitoring once IV fluids are discontinued. Will treat gastroenteritis symptomatically with zofran prn. Problem: Acute (2) Gastroenteritis Problem: Acute
[2017-01-01] MEDS ORDERED: ALBUTEROL SULFATE/IPRATROPIUM 3 ML NEBU IH PRN (00:38)
[2017-01-01 06:00] LABS: Anion Gap 11.5 mmol/L (6.8-13.8); BUN/Creatinine Ratio 7.3 (9.0-21.6); Calcium * 8.7 mg/dL (7.9-10.9); Carbon Dioxide 26.5 mmol/L (24-32.6); Estimated Creat Clear 42.3
[2017-01-01] MEDS ORDERED: LEVOTHYROXINE SODIUM 175 MCG TABLET PO SCH (07:00)
[2017-01-01] MEDS ORDERED: PANTOPRAZOLE SODIUM 40 MG TABLET.EC PO SCH (07:00)
[2017-01-01] MEDS ORDERED: FLUTICASONE/SALMETEROL 14 PUFF DISK.W.DEV IH SCH (07:00)
[2017-01-01] MEDS ORDERED: ALBUTEROL SULFATE 2.5 MG/3 ML VIAL.NEB IH SCH (07:00)
[2017-01-01] MEDS ORDERED: IPRATROPIUM BROMIDE 0.5 MG/2.5 ML VIAL.NEB IH SCH (07:00)
[2017-01-01] MEDS ORDERED: ALBUTEROL SULFATE 2.5 MG/0.5 ML VIAL.NEB IH PRN (07:04)
[2017-01-01] MEDS ORDERED: BISOPROLOL FUMARATE 5 MG TABLET PO SCH ×2 (09:00)
[2017-01-01] MEDS ORDERED: LISINOPRIL 40 MG TABLET PO SCH (09:00)
[2017-01-01] MEDS ORDERED: SPIRONOLACTONE 25 MG TABLET PO SCH (09:00)
[2017-01-01] MEDS ORDERED: FUROSEMIDE 40 MG TABLET PO SCH (09:00)
[2017-01-01] MEDS ORDERED: TIOTROPIUM BROMIDE 5 CAP INHALER IH SCH (09:00)
[2017-01-01] MEDS ORDERED: NORMAL SALINE 1,000 ML IV PRN (12:03)
[2017-01-01 12:56] LABS: Albumin * 3.8 gm/dl (3.4-5.0); Anion Gap 10.6 mmol/L (6.8-13.8); BUN/Creatinine Ratio 5.8 (9.0-21.6); Bilirubin, Total 0.8 mg/dL (0.0-1.1); Ca. Corrected For Albumin 8.5 mg/dL (8.4-10.2); Calcium * 8.7 mg/dL (7.9-10.9); Carbon Dioxide 29.8 mmol/L (24-32.6); Potassium 3.4 mmol/L (3.4-4.6)
[2017-01-01 15:09] VITALS: BP 133/87
--- NOTE | 2017-01-01 16:53 | DS ---
(1) Hyponatremia Problem: Resolved (2) Gastroenteritis Problem: Acute Procedures Performed: none Discharge Disposition: Home self care Disposition: Home self-care Condition: Stable Discharge Activity: Activity as tolerated Discharge Diet: General/regular food Referrals: Aimee Leonardo DO [Primary Care Provider] - One Week Problem Oriented Discharge Instructions to Patient/Family: Hyponatremia, Viral Gastroenteritis, Adult, [id number] Complete Home Medications List: Complete Home Medication List: Albuterol Sulfate [Proair Hfa] 2 puff IH QID PRN 05/14/16 Aspirin 81 mg PO HS 05/14/16 Bisoprolol Fumarate [Zebeta] 5 mg PO DAILY 05/14/16 Budesonide/Formoterol Fumarate [Symbicort 160-4.5 Mcg Inhaler] 2 puff IH BID Cetirizine HCl [Zyrtec] 10 mg PO HS 05/14/16 Cyclobenzaprine HCl [Flexeril] 10 mg PO TID PRN 05/14/16 Furosemide [Lasix] 40 mg PO DAILY 05/14/16 HYDROcodone/ACETAMINOPHEN [[place] 5-325] 1 tab PO Q4H PRN 05/14/16 Ipratropium/Albuterol Sulfate [Combivent Respimat Inhal [place]] 1 puff IH QID Levothyroxine Sodium [Levo-T] 175 mcg PO DAILY 05/14/16 Lisinopril [Zestril] 40 mg PO DAILY 05/14/16 Rivaroxaban [Xarelto] 15 mg PO HS 05/14/16 Spironolactone [Aldactone] 25 mg PO DAILY 05/14/16 Omeprazole 40 mg PO DAILY 12/31/16 Tiotropium [place] [Spiriva] 18 mcg IH DAILY 12/31/16
[2017-01-01] MEDS ORDERED: ASPIRIN 81 MG TAB.CHEW PO SCH (21:00)
[2017-01-01] MEDS ORDERED: RIVAROXABAN 15 MG TABLET PO SCH (21:00)
[2017-01-01] MEDS ORDERED: LORATADINE 10 MG TABLET PO SCH (21:00)
== END 2017-01-01 17:45 | disposition home or self-care (01) | DRG 641 ==
LOC: ER 10:56 → MS 12:41
PROVIDERS: ADMIT Family Medicine; ATTEND Internal Medicine
DX: E87.1 Hypo-osmolality and hyponatremia (principal); K52.9 Noninfective gastroenteritis and colitis, unspecified; E03.9 Hypothyroidism, unspecified; I10 Essential (primary) hypertension; I48.2 Chronic atrial fibrillation; J44.9 Chronic obstructive pulmonary disease, unspecified; I25.10 Atherosclerotic heart disease of native coronary artery without angina pectoris; I25.2 Old myocardial infarction; Z95.0 Presence of cardiac pacemaker; Z79.01 Long term (current) use of anticoagulants; Z79.82 Long term (current) use of aspirin; Z23 Encounter for immunization
CPT/HCPCS: 36415; 80048; 80053; 80307; 81001; 83605; 83880; 85025; 85610; 87086; 90686; 93005; 96374; 99285; G0008; J2405